=== PATIENT | male | born 1995 | race Caucasian/White ===

== ENCOUNTER 2017-08-23 02:30 | Outpatient (CLI) | payer OTHER | END 2017-08-23 02:31 | disposition home or self-care (01) | LOC: LAB 02:30 | PROVIDERS: ATTEND Pathology Blood Banking & Transfusion Medicine | DX: Z01.89 Encounter for other specified special examinations (principal) | CPT/HCPCS: 36415 ==

== ENCOUNTER 2017-09-10 14:22 | Emergency (ER) | payer OTHER ==
[2017-09-10 14:28] VITALS: BP 110/68
--- NOTE | 2017-09-10 14:34 | ED Physician Documentation ---
PD HPI UPPER EXT INJURY - Stated complaint Stated Complaint: FINGER LAC - Chief complaint Chief Complaint: Laceration - History obtained from History obtained from: Patient - History of Present Illness Location: Left, Finger Type of injury: Laceration (from meat slider at work, cut top of ring finger and it sled briskly and opens with flexion.) Where injury occurred: Work Timing - onset: Today Timing - details: Abrupt onset, Still present Similar symptoms before: Has not had sx before Recently seen: Not recently seen Review of Systems Skin: reports: Laceration (s) Neurologic: denies: Focal weakness, Numbness PD PAST MEDICAL HISTORY - Past Medical History Past Medical History: No Neuro: None - Past Surgical History Past Surgical History: No - Present Medications Home Medications: Ambulatory Orders Medication Instructions Recorded Confirmed No Known Home Medications [No 09/10/17 09/10/17 Known Home Medications] - Allergies Allergies/Adverse Reactions: Allergies Allergy/AdvReac Type Severity Reaction Status Date / Time amoxicillin Allergy Hives Verified 09/10/17 14:28 - Social History Does the pt smoke?: No Smoking Status: Never smoker Does the pt drink ETOH?: No Does the pt have substance abuse?: No - Immunizations Immunizations are current?: Yes PD ED PE NORMAL - Vitals Vital signs reviewed: Yes - General General: Alert and oriented X 3, No acute distress, Well developed/nourished - Derm Derm: Normal color, Warm and dry, No rash - Extremities Extremities: Other (left ring finger with lac on dorsal aspect from middle phalanx to proximal, down to fatty layer without deep structure involvement. No FB. Minimal bleeding at this time. ) - Neuro Neuro: No motor deficit, No sensory deficit Results - Vitals Vitals: Oxygen O2 Source Room air Procedures - Laceration (location) left ring finger tip Length in cm: 2 Wound type: Linear, Into subcut fat, Clean Neurovascular status: Sensory intact, Motor intact Tendon involvement: Tendon intact Anesthesia: Lidocaine 2% Wound Preparation: No: FB identified Skin layer closure: Nylon, Running, Size #-0 - enter number (4), Sutures - enter # (9) Other: Patient tolerated well, No complications, Neurovascular intact, Dressing applied, Tetanus UTD Complexity: Simple PD MEDICAL DECISION MAKING - ED course Complexity details: considered differential, d/w patient Departure - Departure Disposition: Home, Self Care Clinical Impression: Finger laceration Qualifiers: Encounter type: initial encounter Finger: ring finger Damage to nail status: without damage Foreign body presence: without foreign body Laterality: left Qualified Code(s): S61.215A - Laceration without foreign body of left ring finger without damage to nail, initial encounter Condition: Stable Record reviewed to determine appropriate education?: Yes Instructions: ED Laceration Hand Comments: It is okay to wash and shower. Clean off the wound twice a day with soap and water, or peroxide and water. Apply some antibiotic ointment to it to keep it moist. Also to watch for signs of infection such as purulence, redness or increasing pain. Return to your primary care or the ER at the specified time for suture removal. Tylenol or ibuprofen if needed for pains. Suture removal 8 -10 days. It is okay to return to work today if you desire. Discharge Date/Time: 09/10/17 15:15
[2017-09-10] MEDS ORDERED: LIDOCAINE 2% 10 ML MDV SUBQ STA (14:44)
[2017-09-10] MEDS ORDERED: BACITRACIN OINT TOP ONE (15:22)
== END 2017-09-10 15:15 | disposition home or self-care (01) ==
LOC: ED 14:22
DX: S61.215A Laceration without foreign body of left ring finger without damage to nail, initial encounter (principal); W27.8XXA Contact with other nonpowered hand tool, initial encounter; Y99.0 Civilian activity done for income or pay
CPT/HCPCS: 1040M; 12001; 99282; 99283; A9270

== ENCOUNTER 2017-09-22 11:20 | Emergency (ER) | payer OTHER ==
[2017-09-22 11:53] VITALS: BP 122/63
--- NOTE | 2017-09-22 12:38 | ED Physician Documentation ---
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 Review of Systems Skin: reports: Laceration (s) PD PAST MEDICAL HISTORY - Past Medical History Neuro: None - Past Surgical History Past Surgical History: Yes - Present Medications Home Medications: Ambulatory Orders Medication Instructions Recorded Confirmed No Known Home Medications [No 09/10/17 09/10/17 Known Home Medications] - Allergies Allergies/Adverse Reactions: Allergies Allergy/AdvReac Type Severity Reaction Status Date / Time amoxicillin Allergy Hives Verified 09/10/17 14:28 - Social History Does the pt smoke?: No Smoking Status: Never smoker Does the pt drink ETOH?: No Does the pt have substance abuse?: No - Immunizations Immunizations are current?: Yes PD ED PE NORMAL - Vitals Vital signs reviewed: Yes - Derm Derm: Other (well healed lac to distal finger s infection) Results - Vitals Vitals: Vital Signs - 24 hr 09/22/17 11:52 Heart Rate 65 Respiratory 16 Rate Blood Pressure 122/63 O2 Saturation 99 Oxygen O2 Source Room air PD MEDICAL DECISION MAKING - ED course ED course: sutures removed by nurse Departure - Departure Disposition: 01 Home, Self Care Clinical Impression: Visit for suture removal Condition: Good Instructions: ED Wound Check Sutr Remove No Infec
== END 2017-09-22 12:42 | disposition home or self-care (01) ==
LOC: ED 11:20
DX: S61.219D Laceration without foreign body of unspecified finger without damage to nail, subsequent encounter (principal); W29.8XXD Contact with other powered hand tools and household machinery, subsequent encounter
CPT/HCPCS: 99282

== ENCOUNTER 2018-11-21 20:33 | Emergency (ER) | payer SELFPAY ==
[2018-11-21 21:11] LABS: BASOPHILS % (AUTO) 0.4 %; EOSINOPHILS # (AUTO) 0.1 10^3/uL (0.0-0.7); EOSINOPHILS % (AUTO) 1.1 %; LYMPHOCYTES # (AUTO) 2.1 10^3/uL (1.5-3.5); LYMPHOCYTES % (AUTO) 28.8 %; MEAN CORPUSCULAR HEMOGLOBIN 28.8 pg (27.0-31.0); MEAN CORPUSCULAR HGB CONC 34.3 g/dL (32.0-36.0); MEAN CORPUSCULAR VOLUME 83.9 fL (80.0-94.0); MONOCYTES # (AUTO) 0.4 10^3/uL (0.0-1.0); NEUTROPHILS # (AUTO) 4.7 10^3/uL (1.5-6.6); NEUTROPHILS % (AUTO) 64.7 %; PLT - PLATELET COUNT 264 10^3/uL (130-450); RED BLOOD COUNT 4.86 10^6/uL (4.70-6.10); RED CELL DISTRIBUTION WIDTH 12.9 % (12.0-15.0); WHITE BLOOD COUNT 7.3 x10^3/uL (4.8-10.8)
[2018-11-21 21:17] LABS: ALBUMIN 4.8 g/dL (3.2-5.5); ALBUMIN/GLOBULIN RATIO 1.7 (1.0-2.2); BILIRUBIN,TOTAL 1.9 mg/dL (0.2-1.0); CALCIUM 9.7 mg/dL (8.5-10.3); CREATININE 0.9 mg/dL (0.6-1.2); TOTAL PROTEIN 7.6 g/dL (6.7-8.2)
--- NOTE | 2018-11-21 21:34 | ED Physician Documentation ---
History of Present Illness - Stated complaint Stated Complaint: POSS SEZ - Chief complaint Chief Complaint: Neuro - History obtained from History obtained from: Patient - History of Present Illness Timing: Enter time (20:15), Today Pain level now: 0 - Additonal information Additional information: tonight while at work at approximately 8:15 PM, patient had sudden onset of sensation of tightening and stiffening of his lower chest and upper abdomen. he reportedly became flushed and had stiffness in his hands. Patient says he r ecalls the entire event; he denies loss of consciousness. He remains standing during the event; he did not fall to ground. He is asymptomatic at this time. Review of Systems Constitutional: reports: Reviewed and negative Eyes: reports: Reviewed and negative Cardiac: reports: Reviewed and negative Respiratory: reports: Reviewed and negative GI: reports: Reviewed and negative : denies: Incontinent Musculoskeletal: reports: Reviewed and negative Neurologic: reports: Reviewed and negative PD PAST MEDICAL HISTORY - Past Medical History Past Medical History: No - Past Surgical History Past Surgical History: Yes - Present Medications Home Medications: Ambulatory Orders Medication Instructions Recorded Confirmed No Known Home Medications 09/10/17 09/10/17 - Allergies Allergies/Adverse Reactions: Allergies Allergy/AdvReac Type Severity Reaction Status Date / Time amoxicillin Allergy Hives Verified 09/10/17 14:28 - Social History Does the pt smoke?: No Smoking Status: Never smoker Does the pt drink ETOH?: No Does the pt have substance abuse?: No - Immunizations Immunizations are current?: Yes PD ED PE NORMAL - Vitals Vital signs reviewed: Yes - General General: Alert and oriented X 3, No acute distress, Well developed/nourished - HEENT HEENT: Atraumatic, PERRL, EOMI, Moist mucous membranes - Neck Neck: Supple, no meningeal sign - Cardiac Cardiac: RRR, No murmur - Respiratory Respiratory: No respiratory distress, Clear bilaterally - Abdomen Abdomen: Soft, Non tender - Neuro Neuro: Alert and oriented X 3, 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, No motor deficit, No sensory deficit, Normal speech Results - Vitals Vitals: Oxygen O2 Source Room air - Labs Labs: Laboratory Tests 11/21/18 11/21/18 20:55 20:55 WBC 7.3 RBC 4.86 Hgb 14.0 Hct 40.8 L MCV 83.9 MCH 28.8 MCHC 34.3 RDW 12.9 Plt Count 264 MPV 8.0 Neut # (Auto) 4.7 Lymph # (Auto) 2.1 [place] # (Auto) 0.4 Eos # (Auto) 0.1 Baso # (Auto) 0.0 Absolute Nucleated RBC 0.01 Nucleated RBC % 0.1 Sodium 138 Potassium 2.8 L Chloride 103 Carbon Dioxide 21 Anion Gap 14.0 H BUN 14 Creatinine 0.9 Estimated GFR (MDRD) 107 Glucose 94 Calcium 9.7 Total Bilirubin 1.9 H AST 18 ALT 14 Alkaline Phosphatase 67 Total Protein 7.6 Albumin 4.8 Globulin 2.8 Albumin/Globulin Ratio 1.7 Lipase 22 PD MEDICAL DECISION MAKING - ED course Complexity details: reviewed results, re-evaluated patient, considered differential, d/w patient ED course: patient remained asymptomatic during ED stay. Labs are remarkable for hypokalemka and elevated bilirubin, although these findings would not explain his symptoms tonight. Departure - Departure Disposition: 01 Home, Self Care Clinical Impression: Near syncope, Hypokalemia Condition: Good Instructions: ED Potassium Deficiency, ED Near Syncope Unkn Follow-Up: [facility] [Provider Group] [facility] [Provider Group] Discharge Date/Time: 11/21/18 22:32
[2018-11-21] MEDS ORDERED: POTASSIUM CHLORIDE 20 MEQ TABLET PO STA (21:59)
[2018-11-21 22:09] VITALS: BP 118/79
== END 2018-11-21 22:32 | disposition home or self-care (01) ==
LOC: ED 20:33
DX: R55 Syncope and collapse (principal); E87.6 Hypokalemia; R79.89 Other specified abnormal findings of blood chemistry
CPT/HCPCS: 36415; 80053; 83690; 85025; 99283; A9270